=== PATIENT | male | born 1960 | race Caucasian/White ===

== ENCOUNTER 2016-10-31 21:43 | Emergency (ER) | payer SELFPAY ==
[~2016-10-31] VITALS: Ht 165.1 cm; Wt 76.2 kg
[~2016-10-31 21:43] MED LIST: ACETAMINOPHEN PO; ALBUTEROL INHALER INH; ALBUTEROL17 GM INH; ASPIR-TRIN325 MG PO; ASPIRIN81 M1 PO; ASPIRIN81 M2; BACITRACIN; BLOOD PRESSURE MED PO; BLOOD THINNER; BP MED; BP PILL; CELEBREX PO; CHOLESTEROL M; CHOLESTEROL MED; CHOLESTEROL MED PO; CHOLESTEROL PILL; CIPRO PO; COLACE PO; FLAGYL PO; FLEXERIL PO; FLEXERIL10 MG PO; FLOMAX0.4 M1 PO; HYCODAN60 ML 5MG/ PO; IBUPROFEN PO; IBUPROFEN800 MG PO; IMDUR-ER30 MG DOB; IMDUR30 MG PO; LEVOTHYROXINE112 MCG PO; LISINOPRIL20 MG PO; LOPRESSOR PO; LORTAB 10-3251 EACH PO; LORTAB 10-5001 EACH; LORTAB 10-5001 EACH PO; LORTAB 10/500 T1 TAB PO; LOVASTATIN20 MG PO; MEDROL DOSEPAK4 MG PO; MEDROL PO; MEDROL4 MG/DOSE- PO; METOPROLOL TAR25 MG; METOPROLOL TAR25 MG PO; MEVACOR; MEVACOR PO; NAPROSYN500 MG PO; NITROGYLCERIN SUBLINGUAL; NO MEDICATIONS; PANTOPRAZOLE SO40 MG; PANTOPRAZOLE SO40 MG PO; PERCOCET 7.5-31 EACH PO; PERCOCET5/325 PO; PERCOCET7.5 PO; PRAVASTATIN SOD20 MG PO; PREDNISONE 20MG PO; PREDNISONE PO; PRILOSEC PO; PROTONIX PO; ST. JOSEPH ASP325 MG PO; SYNTHROID; SYNTHROID PO; SYNTHROID0.1 MG PO; SYNTHROID112 MCG PO; THYROID MED; TYLENOL #3 PO; VOLTAREN75 MG PO; ZANTAC150 MG PO; ZITHROMAX PO; ZITHROMYCIN PO; ZOFRAN PO
== END 2016-10-31 23:28 | disposition home or self-care (01) ==
LOC: SED 21:43
DX: S61.211A Laceration without foreign body of left index finger without damage to nail, initial encounter (principal); I10 Essential (primary) hypertension; F17.200 Nicotine dependence, unspecified, uncomplicated; W45.8XXA Other foreign body or object entering through skin, initial encounter; Y92.009 Unspecified place in unspecified non-institutional (private) residence as the place of occurrence of the external cause
CPT/HCPCS: 12001; 99283